=== PATIENT | female | born 1995 | race Caucasian/White ===

== ENCOUNTER 2017-01-19 20:27 | Emergency (ER) | payer BC ==
[2017-01-19 22:03] LABS: Hematocrit 37 % (35-47); Hemoglobin 11.8 g/dl (12.0-16.0); Mean Corpuscular HGB Conc 32 g/dl (31-36); Mean Corpuscular Hemoglobin 26 pg (27-31); Mean Corpuscular Volume 84 fL (80-97); Mean Platelet Volume 10 um3 (7.4-10.4); Red Blood Count 4.46 10^6/ul (4.0-5.4); Red Cell Distribution Width 15 % (10.5-15); White Blood Count 11.5 10^3/ul (3.5-10.8)
[2017-01-19 22:17] LABS: ALT 9 U/L (7-52); AST 14 U/L (13-39); Albumin 4.6 g/dL (3.2-5.2); Alkaline Phosphatase 46 U/L (34-104); Anion Gap 9 mmol/L (2-11); Blood Urea Nitrogen 12 mg/dL (6-24); CO2 Carbon Dioxide 23 mmol/L (22-32); Calcium 9.6 mg/dL (8.6-10.3); Chloride 106 mmol/L (101-111); EGFR African American 118.8 (>60); EGFR Non-African American 92.4 (>60); Globulin 3.1 g/dL (2-4); Glucose 92 mg/dL (70-100); Potassium 4.4 mmol/L (3.5-5.0); Sodium 138 mmol/L (133-145); Total Protein 7.7 g/dL (6.4-8.9)
[2017-01-19 22:58] LABS: Acetaminophen < 15 mcg/mL; Alcohol < 10 mg/dL (<10); Salicylate < 2.50 mg/dL (<30)
[2017-01-19 23:08] LABS: TSH (Thyroid Stimulating Horm) 1.58 mcIU/mL (0.34-5.60)
[2017-01-20 00:10] LABS: Urine Bacteria Absent (Absent); Urine Bilirubin Negative (Negative); Urine Glucose Negative (Negative); Urine Nitrite Negative (Negative)
[2017-01-20 00:14] LABS: Benzodiazepine Urine Screen None Detected (None Detect)
--- NOTE | 2017-01-20 02:09 | ED ---
Liam Marquez Adam, scribed for Mushtaq Medina on 01/19/17 at 2140 . Psychiatric Complaint - HPI Summary HPI Summary: Pt is a 21 year old female brought in as 9.41 for SI. She states that her friends called [employer] because they thought she was suicidal. She states that she has been upset lately and she implied to her friends that she was suicidal by saying "I'm done" tonight. She states that she didn't really mean it and that she has said things like this in the past to be "dramatic." She denies any SI at this time. According to the nurse's note, the pt fled in her brother's car and there was a county-wide search for her. She denies any psychiatric history, PMHx, or tobacco/alcohol/drug use. - History Of Current Complaint Chief Complaint: EDMentalHealth Time Seen by Provider: 01/19/17 21:32 Hx Obtained From: Patient Onset/Duration: Gradual Onset, Lasting Days, Still Present Timing: Constant Severity Initially: Moderate Severity Currently: Moderate Character: Depressed Aggravating Factor(s): Recent Stress Alleviating Factor(s): Nothing Associated Signs And Symptoms: Positive: Negative Related History: Negative For: Prior Psychiatric Issues Has Suicidal: Reports: Thoughts PMH/Surg Hx/FS Hx/Imm Hx Previously Healthy: Yes Psychiatric History: Denies: Hx Bipolar Disorder Infectious Disease History: Denies: Traveled Outside the [place] in Last 30 Days - Family History Known Family History: Positive: None - Patient denies any FMHx - Social History Occupation: Student Lives: Alone Alcohol Use: None Hx Substance Use: No Substance Use Type: Reports: None Hx Tobacco Use: No Smoking Status (MU): Never Smoked Tobacco Review of Systems Negative: Fever Musculoskeletal: Negative Skin: Negative Positive: Depressed All Other Systems Reviewed And Are Negative: Yes Physical Exam Triage Information Reviewed: Yes Vital Signs On Initial Exam: Initial Vitals Temp Pulse Resp BP Pulse Ox 98.8 F 79 18 127/71 100 01/19/17 20:31 01/19/17 20:31 01/19/17 20:31 01/19/17 20:31 01/19/17 20:31 Vital Signs Reviewed: Yes Appearance: Positive: Well-Appearing, No Pain Distress Skin: Positive: Warm, Skin Color Reflects Adequate Perfusion, Dry Head/Face: Positive: Normal Head/Face Inspection Eyes: Positive: EOMI, ROHAN ENT: Positive: Normal ENT inspection Neck: Positive: Supple, Nontender Respiratory/Lung Sounds: Positive: Clear to Auscultation, Breath Sounds Present Cardiovascular: Positive: RRR, Pulses are Symmetrical in both Upper and Lower Extremities Abdomen Description: Positive: Nontender, Soft Bowel Sounds: Positive: Present Musculoskeletal: Positive: Normal, Strength/ROM Intact Diagnostics - Vital Signs Vital Signs Temp Pulse Resp BP Pulse Ox 01/19/17 20:31 98.8 F 79 18 127/71 100 - Laboratory Lab Statement: Any lab studies that have been ordered have been reviewed, and results considered in the medical decision making process. Course/Dx - Differential Dx/Clinical Impression Provider Diagnosis: Suicidal ideation Discharge - Discharge Plan Condition: Stable Disposition: OTHER Discharge Disposition Comment: Pending mental health evaluation The documentation as recorded by the Liam baez Adam accurately reflects the service I personally performed and the decisions made by , Mushtaq Medina.
[2017-01-20 12:23] VITALS: BP 113/67
--- NOTE | 2017-01-20 14:34 | ED ---
Julián Marquez Michael, scribed for Heather Wheeler MD on 01/20/17 at 1417 . Progress - Progress Note Progress Note: 14:20 Discussed with the patient and her family about the results of her labs. Both parents and pt are agreeable to discharge. Pt has no suicidal or homicidal ideation at present. Pt is ambulatory and in no distress. - Consult/PCP Time Called: 02:00 Course/Dx - Diagnoses Provider Diagnoses: Suicidal ideation The documentation as recorded by the Julián baez Michael accurately reflects the service I personally performed and the decisions made by , Heather Wheeler MD.
== END 2017-01-20 14:40 | disposition home or self-care (01) ==
LOC: ED 20:27
DX: R45.851 Suicidal ideations (principal); F32.9 Major depressive disorder, single episode, unspecified
CPT/HCPCS: 36415; 80053; 80307; 80320; 80329; 81003; 81015; 84443; 84702; 85025; 99282; G0480